=== PATIENT | male | born 1950 | race African-American/Black ===

== ENCOUNTER 2016-03-22 14:53 | Emergency (ER) | payer OTHER ==
[~2016-03-22] VITALS: Ht 170.2 cm; Wt 70.8 kg
[~2016-03-22 14:53] MED LIST: AMOXICILLIN 50500 M1 PO; FLONASE 0.05%50 MCG NASAL; HYDROCHLOROTHIA25 M1 PO; KYOLIC; LIPITOR20 MG PO; LISINOPRIL10 MG PO; LISINOPRIL20 MG PO; MIRALAX255 GM PO; OMEPRAZOLE 20 M20 MG PO; PRILOSEC 20 MG20 MG PO; SIMVASTATIN20 MG PO; TRAMADOL 50 MG50 MG PO; VENTOLIN HFA 1818 GM
[2016-03-22] MEDS ORDERED: VENTOLIN HFA 1818 GM INH (15:34)
[2016-03-22] MEDS ORDERED: NORVASC2.5 MG PO (15:56)
[2016-03-22] MEDS ORDERED: HYDROCHLOROTH12.5 M1 PO (15:56)
[2016-03-22] MEDS ORDERED: BENADRYL25 MG PO (15:58)
[2016-03-22] MEDS ORDERED: PEPCID20 MG PO (15:58)
[2016-03-22] MEDS ORDERED: DELTASONE20 MG PO (15:58)
[2016-03-22 16:32] VITALS: BP 114/73
[2016-05-13] MEDS ORDERED: COLACE100 MG PO (23:20)
[2016-05-14] MEDS ORDERED: TUSSIONEX PENN473 ML PO (00:05)
== END 2016-03-22 16:32 | disposition home or self-care (01) ==
LOC: ER 14:53
DX: T78.3XXA Angioneurotic edema, initial encounter (principal); J45.909 Unspecified asthma, uncomplicated; E78.00 Pure hypercholesterolemia, unspecified; I10 Essential (primary) hypertension; M41.80 Other forms of scoliosis, site unspecified

== ENCOUNTER 2017-02-23 19:26 | Emergency (ER) | payer OTHER ==
[~2017-02-23] VITALS: Ht 170.2 cm; Wt 70.3 kg
[~2017-02-23 19:26] MED LIST changes: +BENADRYL25 MG PO; +COLACE100 MG PO; +DELTASONE20 MG PO; +HYDROCHLOROTH12.5 M1 PO; +NORVASC2.5 MG PO; +PEPCID20 MG PO; +TUSSIONEX PENN473 ML PO; +VENTOLIN HFA 1818 GM INH
[2017-02-23 20:39] LABS: ABSOLUTE NEUTROPHILS 3.3 thou/uL (1.4-8.2); BASOPHILS 0.3 % (0.0-2.0); EOSINOPHILS 0.9 % (0.0-3.0); HEMATOCRIT 38.2 % (42.0-52.0); HEMOGLOBIN 12.9 gm/dL (14.0-18.0); LYMPHOCYTES 14.1 % (24.0-44.0); MCH 30.5 pg (26.0-34.0); MCHC 33.8 g/dL (28.0-37.0); MCV 90.2 fL (80.0-100.0); MONOCYTES 7.1 % (1.0-8.0); PLATELET COUNT 235 thou/uL (150-400); POLYS 77.6 % (36.0-66.0); RBC 4.23 mil/uL (4.50-6.00); RDW 13.9 % (10.5-14.5); WBC 4.3 thou/uL (4.0-11.0)
[2017-02-23 20:40] LABS: MANUAL DIFF NO
[2017-02-23 20:51] LABS: CALCIUM 9.4 mg/dL (8.5-10.1); CREATININE 0.9 mg/dL (0.7-1.3); POTASSIUM 3.8 mmol/L (3.5-5.1)
[2017-02-23 20:54] LABS: TOTAL BILIRUBIN 0.5 mg/dL (<0.1-1.0)
[2017-02-23] MEDS ORDERED: OSELB75 PO (22:29)
[2017-02-23 22:49] VITALS: BP 144/87
== END 2017-02-23 22:50 | disposition home or self-care (01) ==
LOC: ER 19:26
PROVIDERS: Physician Assistant
DX: J11.1 Influenza due to unidentified influenza virus with other respiratory manifestations (principal); J45.909 Unspecified asthma, uncomplicated; E78.00 Pure hypercholesterolemia, unspecified; I10 Essential (primary) hypertension

== ENCOUNTER 2018-03-22 17:33 | Emergency (ER) | payer OTHER ==
[~2018-03-22] VITALS: Ht 167.6 cm; Wt 72.6 kg
[~2018-03-22 17:33] MED LIST changes: +OSELB75 PO
[2018-03-22] MEDS ORDERED: LIPITOR 20 MG T20 M1 PO (18:17)
[2018-03-22 18:43] LABS: ABSOLUTE NEUTROPHILS 1.5 thou/uL (1.4-8.2); BASOPHILS 0.8 % (0.0-2.0); EOSINOPHILS 1.8 % (0.0-3.0); HEMATOCRIT 38.7 % (42.0-52.0); HEMOGLOBIN 13.1 gm/dL (14.0-18.0); MCH 31.1 pg (26.0-34.0); MCHC 33.8 g/dL (28.0-37.0); MCV 92.1 fL (80.0-100.0); MONOCYTES 10.4 % (1.0-8.0); PLATELET COUNT 247 thou/uL (150-400); RBC 4.21 mil/uL (4.50-6.00); RDW 13.3 % (10.5-14.5); WBC 3.9 thou/uL (4.0-11.0)
[2018-03-22 18:46] LABS: CALCIUM 9.2 mg/dL (8.5-10.1); POTASSIUM 3.7 mmol/L (3.5-5.1)
[2018-03-22] MEDS ORDERED: VENTOLIN HFA 1818 GM INH (20:49)
[2018-03-22 21:04] VITALS: BP 125/76
== END 2018-03-22 21:05 | disposition home or self-care (01) ==
LOC: ER 17:33
PROVIDERS: Student in an Organized Health Care Education/Training Program
DX: J06.9 Acute upper respiratory infection, unspecified (principal); J45.909 Unspecified asthma, uncomplicated; E78.00 Pure hypercholesterolemia, unspecified; I10 Essential (primary) hypertension; M41.9 Scoliosis, unspecified

== ENCOUNTER 2018-08-30 19:40 | Emergency (ER) | payer OTHER ==
[~2018-08-30] VITALS: Ht 170.2 cm; Wt 70.3 kg
[~2018-08-30 19:40] MED LIST changes: +LIPITOR 20 MG T20 M1 PO
[2018-08-30] MEDS ORDERED: HYDROCHLOROTH12.5 M1 PO (19:48)
[2018-08-30 20:17] LABS: ABSOLUTE NEUTROPHILS 1.4 thou/uL (1.4-8.2); BASOPHILS 1.4 % (0.0-2.0); HEMATOCRIT 36.7 % (42.0-52.0); HEMOGLOBIN 12.2 gm/dL (14.0-18.0); LYMPHOCYTES 48.4 % (24.0-44.0); MCH 30.6 pg (26.0-34.0); MCHC 33.2 g/dL (28.0-37.0); MCV 92.3 fL (80.0-100.0); MONOCYTES 9.5 % (1.0-8.0); PLATELET COUNT 243 thou/uL (150-400); POLYS 38.7 % (36.0-66.0); RBC 3.98 mil/uL (4.50-6.00); RDW 13.6 % (10.5-14.5); WBC 3.6 thou/uL (4.0-11.0)
[2018-08-30 20:18] LABS: ANION GAP 10 mmol/L (7-16); BUN 11 mg/dL (7-18); CALCIUM 9.5 mg/dL (8.5-10.1); CHLORIDE 105 mmol/L (98-107); CO2 28 mmol/L (21-32); CREATININE 0.9 mg/dL (0.7-1.3); GLUCOSE 123 mg/dL (74-106); POTASSIUM 3.9 mmol/L (3.5-5.1); SODIUM 143 mmol/L (136-145)
[2018-08-30 20:20] LABS: APTT 26.6 Seconds (24.5-32.8); PROTIME 10.3 Seconds (9.3-11.4)
[2018-08-30 20:28] LABS: ALBUMIN 3.4 g/dL (3.4-5.0); MAGNESIUM 2.3 mg/dL (1.8-2.4); SGOT 23 U/L (15-37); SGPT 25 U/L (30-65); TOTAL BILIRUBIN 0.3 mg/dL (<0.1-1.0); TOTAL PROTEIN 7.8 g/dL (6.4-8.2); TROPONIN-I <0.06 ng/mL (<0.06)
[2018-08-30 21:08] VITALS: BP 153/88
--- NOTE | 2018-08-31 07:35 | EKG ---
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1950 Requested By: Robi Cochran Order Number: [id number] MD: Juanjo Summers Measurements Intervals [place] Rate: 63 P: 36 MN: 203 QRS: 6 QRSD: 116 T: 58 QT: 413 QTc: 423 Interpretive Statements Sinus rhythm Left ventricular hypertrophy Early R-wave progression Compared to ECG 04/06/2016 12:54:45 No significant changes Electronically Signed On 08-31-2018 7:34:53 CDT by Juanjo Summers [email or web address] ��������������������������������������������� <ELECTRONICALLY SIGNED> ���������������������������������������� By: Juanjo Summers MD, [facility] ��������������������������������������������� 08/31/18 0734 1940 40 Juanjo Summers MD, FACC /EPI
== END 2018-08-30 21:10 | disposition home or self-care (01) ==
LOC: ER 19:40
PROVIDERS: Emergency Medicine
DX: K21.9 Gastro-esophageal reflux disease without esophagitis (principal); K20.9 Esophagitis, unspecified; M41.9 Scoliosis, unspecified; M41.85 Other forms of scoliosis, thoracolumbar region; J45.909 Unspecified asthma, uncomplicated; E78.00 Pure hypercholesterolemia, unspecified; I10 Essential (primary) hypertension

== ENCOUNTER 2019-05-13 03:49 | Inpatient (IN) | payer OTHER ==
[~2019-05-13] VITALS: Ht 170.2 cm; Wt 72.1 kg
[2019-05-13] VITALS (17 sets, daily range): BP systolic 113–136; BP diastolic 57–97
[2019-05-13 04:21] LABS: ABSOLUTE NEUTROPHILS 1.1 thou/uL (1.4-8.2); BASOPHILS 0.7 % (0.0-2.0); EOSINOPHILS 2.2 % (0.0-3.0); HEMATOCRIT 37.4 % (42.0-52.0); HEMOGLOBIN 12.2 gm/dL (14.0-18.0); MCH 30.6 pg (26.0-34.0); MCHC 32.7 g/dL (28.0-37.0); MCV 93.6 fL (80.0-100.0); MONOCYTES 11.1 % (1.0-8.0); PLATELET COUNT 250 thou/uL (150-400); RDW 13.4 % (10.5-14.5); WBC 3.9 thou/uL (4.0-11.0)
[2019-05-13 04:28] LABS: CALCIUM 9.3 mg/dL (8.5-10.1); CREATININE 0.9 mg/dL (0.7-1.3); POTASSIUM 3.2 mmol/L (3.5-5.1)
[2019-05-13 04:39] LABS: ALBUMIN 3.8 g/dL (3.4-5.0); TOTAL BILIRUBIN 0.4 mg/dL (<0.1-1.0); TOTAL PROTEIN 7.7 g/dL (6.4-8.2); TROPONIN-I 0.27 ng/mL (<0.06)
--- NOTE | 2019-05-13 05:40 | NUR ---
HAND OFF TOOL FAXED TO [facility]
--- NOTE | 2019-05-13 05:59 | NUR ---
Report is given to ELLIS Zuniga
[2019-05-13 07:30] LABS: ALBUMIN 3.8 g/dL (3.4-5.0); TOTAL PROTEIN 7.7 g/dL (6.4-8.2)
[2019-05-13 07:55] LABS: TSH 1.765 uIU/mL (0.358-3.740)
[2019-05-13 09:36] LABS: CHOLESTEROL 180 mg/dL (<200); HDL CHOLESTEROL 47 mg/dL (>40); LDL CHOLESTEROL 121 mg/dL (<100); TC:HDL 3.8 Ratio (Not establshd); TRIGLYCERIDE 64 mg/dL (<150); VLDL 13 mg/dL (<40)
--- NOTE | 2019-05-13 13:11 | CATHLAB ---
[facility] [place] [address] INVASIVE PROCEDURE REPORT Name: CELESTE DE LA VEGA Room #: 204-P ADM IN M.R.#: [id number] Admission: 05/13/19 Attend Phys: Diego Mccullough MD Discharge: Date of : 48 Report #: [id number] THIS REPORT FOR: cc: FAM - No family physician/PCP FAM - No family physician/PCP Juanjo Summers MD [facility] ~ APPROVED REPORT Study performed: 05/13/2019 10:01:34 Patient Details Patient Status: In-Patient Room #: The patient is a 68 year-old male Event Personnel Juanjo Summers Film Sound Coordinator, Amber Rushing RN RN, Jordan, Jaqcuelyn Monitor, Daniel Zelaya'eliz RTR Scrub Procedures Performed Art Access - R femoral artery* 75313 Initial Mod Sed Same Phys/QHP Gr5y 493486 11203 Mod Sed Same Phys/QHP Ea 280421 Left Heart Cath w/or w/o Coronaries [id number] [facility] Place w/wo Plasty Single RCA 752547 Hemostasis w/ Mynx Indication Non-STEMI (>6 hrs to = 12 hrs), Chest pain Risk Factors Dysplipidemia , Hypertension Procedure Narrative The patient was brought urgently to the Cardiac Catheterization Laboratory and was prepped and draped in a sterile manner. The Right Groin^ was infiltrated with 1% Lidocaine subcutaneous anesthesia. A PINNACLE 6FR Sheath #[id number] sheath was inserted into the RFA^. Coronary angiography was performed using coronary diagnostic catheters. The right coronary system was accessed and visualized with a JR 4 catheter. The left coronary system was accessed and visualized with a JL 4 catheter. The left ventricle was accessed and visualized with a Pigtail catheter. Left ventricular/Aortic Valve gradient assessed via catheter pullback. Closure device was deployed with a 6 Fr Mynx. The patient tolerated the procedure well and there were no complications associated with the procedure. There was no hematoma. Due to severe kyphoscoliosis, the aorta is extremely tortuous. [facility] [address] [place] [address] INVASIVE PROCEDURE REPORT Name: CELESTE DE LA VEGA Room #: 204-P [facility] IN ..#: [id number] Admission: 05/13/19 Attend Phys: Diego Mccullough MD Discharge: Date of : 48 Report #: [id number] Coronary ostial engagement was difficult especially for the right coronary. Right coronary guide support was fair at best. Multiple wires and balloons were used. Intraoperative Conscious Sedation Sedation start time: 10:06 Case end Time: 12:12 Fentanyl 75 mcg Versed 1 mg Fluoro Time: 31.09 minutes Dose: DAP 81649.00 cGycm2 6282 mGy Contrast Type and Amount: Omnipaque 325 ml Coronary Angiography The patient's coronary anatomy is right dominant. Diagnostic Cath Left Main 10-20% distal left main plaquing LAD Mild proximal and mid LAD plaquing Circumflex 30-40% ostial circumflex plaquing OM1 The circumflex is comprised of a single distally bifurcating marginal branch. Mild mid OM branch plaquing of 20-30% Right Coronary The right coronary is dominant and very tortuous in its proximal and mid portions with a critical 99% long mid right coronary stenosis Left Ventriculography The left ventricle is normal in size with abnormal contractility. The left ventricular ejection fraction is estimated to be 50%. Left ventricular wall motion abnormalities are present. There is no mitral insufficiency. Inferior wall hypokinesis Hemodynamics The aortic pressure is 152/55 mmHg with a mean of 98 mmHg. The left ventricular pressure is 152/2 mmHg with a mean of mmHg. The left ventricular end diastolic pressure is 31 mmHg. PCI Technique Lesion Anticoagulation was achieved with Heparin, Integrilin. Patient was preloaded with Effient. Percutaneous coronary intervention was performed on the mid right coronary artery. The lesion stenosis prior to intervention was 99% with AMARA 3 flow. A LAUNCHER 6FR JR 4 #[id number] Guide Catheter was used to engage the right coronary ostium. A Luge Wire .014 x 182CM #[id number] Interventional Guidewire was used to cross the lesion. [facility] [address] [place] [address] INVASIVE PROCEDURE REPORT Name: CELESTE DE LA VEGA Room #: 204-P [facility] IN M.R.#: [id number] Admission: 05/13/19 Attend Phys: Diego Mccullough MD Discharge: Date of : 48 Report #: [id number] BALLOON DILATION A Balloon catheter Euphora RX 2.5 x 12 #[id number] was inserted and inflated up to 8.00atm for 34seconds. Additional Inflation: 14.00atm for 68seconds. Additional Inflation: 17.00atm for 66seconds. STENT DEPLOYMENT A drug-eluting stent RESOLUTE YEYO RX 2.5 X 12 #[id number] was inserted and inflated up to 18.00atm for 30seconds. Multiple prolonged inflations were made in the mid right coronary. A saman wire was placed and needed in order to deliver the stents to the mid right coronary A long 36 mm stent would not traverse the mid right coronary. Consequently, 3 shorter stents were used in sequence, distally a 2.5 x 12 mm, then 2.5 x 15 mm, then 2.5 x 15 mm Resolute stents POST STENT DEPLOYMENT BALLOON DILATION A Balloon catheter ShuttersongK NC RX 2.75 X 12 #[id number] was inserted and inflated up to 18.00atm for 33seconds. Additional Inflation: 22.00atm for 35seconds. Additional Inflation: 24.00atm for 33seconds. All stents were postdilated with a 2.75 mm noncompliant balloon to in upwards of 24 ruben (3.0 mm) Final angiography reveals 0 % stenosis with AMARA 3 flow. COMMENTS Difficult coronary intervention requiring multiple wiring catheter exchanges. Some of this difficulty was related to extreme tortuosity of the aorta due to severe kyphoscoliosis STENT DEPLOYMENT A drug-eluting stent RESOLUTE YEYO RX 2.5 X 15 #[id number] was inserted and inflated up to 18.00atm for 33seconds. Conclusion 1. Mild left ventricular dysfunction with inferior wall hypokinesis. Ejection fraction 50%. 2. Acute diastolic heart failure with elevated left ventricular end-diastolic pressure 3. Mild left main plaquing. 4. Minimal plaquing of the proximal and mid portions of the LAD. 5. 40% ostial circumflex stenosis (nondominant) feeding a single marginal branch 6. Severe, tortuous and dominant right coronary stenosis of 99%. This was successfully treated in sequence with a 2.5 x 12 mm, 2.5 x 15 mm, and 2.5 x 15 mm Resolute stents, postdilated to 3.0 mm [facility] [address] [address] INVASIVE PROCEDURE REPORT Name: YOLETTEKIANNASAPPHIRE Room #: 204-P ADM IN M.R.#: [id number] Admission: 05/13/19 Attend Phys: Diego Mccullough MD Discharge: Date of : 48 Report #: [id number] Recommendations Cardiac Rehabilitation Referral Aggressive Medical Therapy <ELECTRONICALLY SIGNED> By: Juanjo Summers MD, FAC 05/13/19 1309 1309 130 Juanjo Summers MD, FAC /INF
--- NOTE | 2019-05-13 13:26 | EKG ---
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1950 Requested By: Jonah Rain Order Number: [id number] MD: Juanjo Summers Measurements Intervals [place] Rate: 70 P: 54 ME: 217 QRS: 6 QRSD: 128 T: -1 QT: 446 QTc: 482 Interpretive Statements Sinus rhythm Borderline prolonged ME interval Left ventricular hypertrophy Borderline prolonged QT interval Compared to ECG 08/30/2018 19:41:38 No significant changes Electronically Signed On 05-13-2019 13:25:04 CDT by Juanjo Summers [email or web address] <ELECTRONICALLY SIGNED> By: Juanjo Summers MD, [facility] 05/13/19 1325 0404 0404 Juanjo Summers MD, [facility] /EPI
--- NOTE | 2019-05-13 13:26 | EKG ---
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1950 Requested By: Jonah Rain Order Number: [id number] MD: Juanjo Summers Measurements Intervals [place] Rate: 64 P: 36 [place]: 207 QRS: 4 QRSD: 112 T: 65 QT: 427 QTc: 441 Interpretive Statements Sinus rhythm Abnormal R-wave progression, early transition Left ventricular hypertrophy Compared to ECG 08/30/2018 19:41:38 No significant changes Electronically Signed On 05-13-2019 13:25:14 CDT by Juanjo Summers [email or web address] <ELECTRONICALLY SIGNED> By: Juanjo Summers MD, [facility] 05/13/19 1325 0452 0452 Juanjo Summers MD, [facility] /EPI
--- NOTE | 2019-05-13 13:27 | EKG ---
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1950 Requested By: Juanjo Summers Order Number: [id number] MD: Juanjo Summers Measurements Intervals [place] Rate: 79 P: 51 WA: 214 QRS: -26 QRSD: 119 T: 17 QT: 416 QTc: 477 Interpretive Statements Sinus rhythm Borderline prolonged [place] interval Early R-wave progression Left ventricular hypertrophy Inferior infarct, old Compared to ECG 08/30/2018 19:41:38 Inferior Q waves are more prominent Electronically Signed On 05-13-2019 13:26:29 CDT by Juanjo Summers [email or web address] <ELECTRONICALLY SIGNED> By: Juanjo Summers MD, [facility] 05/13/19 1326 1206 1206 Juanjo Summers MD, FAC /EPI
--- NOTE | 2019-05-13 19:05 | NUR ---
ASSUMED CARE OF PT AT SHIFT CHANGE. ASSESSMENTS CHARTED. MEDS GIVEN PER MAY. PT A&OX4. VSS. 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 R GROIN SIDE REMAINS CDI, SOFT WITH NO HEMATOMA OR BRUISING. WILL CONTINUE TO MONITOR AND FOLLOW POC.
[2019-05-14] VITALS (8 sets, daily range): BP systolic 106–129; BP diastolic 58–76
[2019-05-14 03:08] LABS: GLYCOHEMOGLOBIN (HGB A1C) 6.2 % (4.8-5.6)
--- NOTE | 2019-05-14 04:14 | NUR ---
ASSESSMENT DOCUMENTED.PT BEEN RESTING IN NO ACUTE DISTRESS.A/OX4.VSS.S/P CARDIAC JOHNY,RIGHT GROIN INTACT W/O HEMATOMA.UP AD ASHLY TO BR,VOIDING ADEQUATELY VIA URINAL.NSR ON MONITOR.PT TO DISCHARGE TO HOME TODAY.WILL CONT TO MONITOR PER POC
[2019-05-14 04:27] LABS: HEMATOCRIT 33.2 % (42.0-52.0); HEMOGLOBIN 10.9 gm/dL (14.0-18.0); MCH 30.7 pg (26.0-34.0); MCHC 32.7 g/dL (28.0-37.0); MCV 93.8 fL (80.0-100.0); RBC 3.54 mil/uL (4.50-6.00); RDW 13.5 % (10.5-14.5)
[2019-05-14 04:32] LABS: ALBUMIN 3.2 g/dL (3.4-5.0); CALCIUM 8.9 mg/dL (8.5-10.1); CREATININE 0.9 mg/dL (0.7-1.3); MAGNESIUM 1.9 mg/dL (1.8-2.4); POTASSIUM 3.8 mmol/L (3.5-5.1); TOTAL BILIRUBIN 0.6 mg/dL (<0.1-1.0); TOTAL PROTEIN 6.8 g/dL (6.4-8.2)
[2019-05-14 04:35] LABS: TROPONIN-I 28.74 ng/mL (<0.06)
--- NOTE | 2019-05-14 09:00 | EKG ---
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1950 Requested By: Juanjo Summers Order Number: [id number] MD: Sae Hollis Measurements Intervals [place] Rate: 54 P: 42 FL: 217 QRS: -36 QRSD: 131 T: 16 QT: 425 QTc: 403 Interpretive Statements Sinus rhythm Borderline prolonged [place] interval Nonspecific IVCD with LAD Left ventricular hypertrophy Compared to ECG 05/13/2019 12:06:25 Intraventricular conduction delay now present Myocardial infarct finding still present Electronically Signed On 05-14-2019 8:59:32 CDT by Sae Hollis [email or web address] <ELECTRONICALLY SIGNED> By: Sae Hollis MD 05/14/19 0859 2 2 Sae Hollis MD /EPI
--- NOTE | 2019-05-14 13:34 | 2DMMODE ---
[facility] [place] [address] 2 D/M-MODE ECHOCARDIOGRAM Name: CELESTE DE LA VEGA Room #: 204-P ADM IN M.R.#: [id number] Admission: 05/13/19 Attend Phys: Diego Mccullough MD Discharge: Date of : 48 Report #: [id number] THIS REPORT FOR: cc: FAM - No family physician/PCP FAM - No family physician/PCP Juanjo Summers MD [facility] ~ APPROVED REPORT Study performed: 05/14/2019 09:59:45 EXAM: Comprehensive 2D, Doppler, and color-flow Echocardiogram Patient Location: Echo lab Room #: 204 Status: routine BSA: 1.84 HR: 54 bpm BP: 113/71 mmHg Rhythm: NSR Other Information Study Quality: Excellent Indications KS status post PCI. Hx: HTN, HLP. 2D Dimensions RVDd: 42.46 mm IVSd: 10.44 (7-11mm) LVOT Diam: 23.52 (18-24mm) LVDd: 44.86 mm PWd: 9.99 (7-11mm) Ascending Ao: 34.96 (22-36mm) LVDs: 33.77 (25-40mm) Aortic Root: 37.45 mm Volumes Left Atrial Volume (Systole) Single Plane 4CH: 68.57 mL Single Plane 2CH: 71.15 mL LA ESV Index: 42.00 mL/m2 Aortic Valve AoV Peak Jerry.: 1.58 m/s AO Peak Gr.: 10.04 mmHg LVOT Max P.15 mmHg LVOT Max V: 0.89 m/s MARY Vmax: 2.43 cm2 [facility] [address] [place] [address] 2 D/M-MODE ECHOCARDIOGRAM Name: CELESTE DE LA VEGA Room #: 204-P [facility] IN ..#: [id number] Admission: 05/13/19 Attend Phys: Diego Mccullough MD Discharge: Date of : 48 Report #: [id number] Mitral Valve E/A Ratio: 1.7 MV Decel. Time: 175.84 ms MV E Max Jerry.: 0.78 m/s MV A Jerry.: 0.47 m/s MV PHT: 50.99 ms IVRT: 65.74 ms Pulmonary Valve PV Peak Jerry.: 0.84 m/s PV Peak Gr.: 2.84 mmHg Pulmonary Vein P Vein S: 0.42 m/s P Vein A: 0.35 m/s P Vein D: 0.45 m/s P Vein A Dur.: 120.0 msec P Vein S/D Ratio: 0.93 Tricuspid Valve TR Peak Jerry.: 2.72 m/s RAP Estimate: 5.00 mmHg TR Peak Gr.: 30.00 mmHg PA Pressure: 35.00 mmHg Left Ventricle The left ventricle is normal size. There is normal left ventricular wall thickness. Left ventricular systolic function is at the lower limits of normal. Hypokinesis involving the base and mid portions of the inferior wall. LVEF is 50%. The left ventricular diastolic function is normal. Right Ventricle The right ventricle is normal size. The right ventricular systolic function is normal. Atria Left atrium is mildly dilated. The right atrium size is normal. Aortic Valve The aortic valve is moderately calcified, trileaflet Mild aortic regurgitation. There is no aortic valvular stenosis. Mitral Valve The mitral valve is normal in structure. Mild to moderate mitral regurgitation. Tricuspid Valve [facility] [address] [place] [address] 2 D/M-MODE ECHOCARDIOGRAM Name: CELESTE DE LA VEGA Room #: 204-P ADM IN M.R.#: [id number] Admission: 05/13/19 Attend Phys: Diego Mccullough MD Discharge: Date of : 48 Report #: [id number] The tricuspid valve is normal in structure. Mild tricuspid regurgitation. Estimated PAP is 35mmHg. Pulmonic Valve The pulmonary valve is normal in structure. Mild to moderate pulmonic regurgitation. Great Vessels The aortic root is normal in size. The ascending aorta is normal in size. IVC is normal in size and collapses >50% with inspiration. Pericardium There is no pericardial effusion. <Conclusion> Left ventricular systolic function is at the lower limits of normal. Hypokinesis involving the base and mid portions of the inferior wall. LVEF is 50%. Left atrium is mildly dilated. The aortic valve is moderately calcified, trileaflet. Mild aortic regurgitation, no stenosis The mitral valve is normal in structure. Mild to moderate mitral regurgitation. Mild tricuspid regurgitation. Estimated pulmonary artery pressure of 35mmHg. There is no pericardial effusion. <ELECTRONICALLY SIGNED> By: Juanjo Summers MD, [facility] 05/14/19 1333 1333 133 Juanjo Summers MD, FACC /INF
--- NOTE | 2019-05-14 17:50 | NUR ---
ASSUMED CARE OF PT AT SHIFT CHANGE. ASSESSMENTS CHARTED. MEDS GIVEN PER MAY. PT A&OX4, NO C/O PAIN OR SOA. ON RA. CRITICAL TROP,18.17, RECEIVED FROM LAB AND RECORDED. ORDERS STATE TO NO CALL CARDIOLOGY WITH ELEVATED TROPS. PLAN TO CONTINUE MEDS AND DC TOMORROW. AT BEDSIDE.
--- NOTE | 2019-05-15 03:59 | NUR ---
ASSESSMENT DOCUMENTED.PT BEEN RESTING IN NO ACUTE DISTRESS.A/OX4.VSS.DENIES CHEST DISCOMFORT.UP AD ASHLY TO BR.VOIDING ADEQUATELYS/P CARDIAC JOHNY W/KITA PLACED TO RCA.RIGHT GROIN W/O HEMATOMA.PT TO DISCHARGE TO HOME TODAY.WILL CONT TO MONITOR PER POC.
[2019-05-15 04:25] VITALS: BP 115/75
[2019-05-15 05:57] LABS: HEMATOCRIT 35.7 % (42.0-52.0); HEMOGLOBIN 11.8 gm/dL (14.0-18.0); MCH 30.7 pg (26.0-34.0); MCHC 33.1 g/dL (28.0-37.0); MCV 92.8 fL (80.0-100.0); RBC 3.85 mil/uL (4.50-6.00); RDW 13.6 % (10.5-14.5); WBC 5.2 thou/uL (4.0-11.0)
[2019-05-15 06:30] LABS: CALCIUM 9.1 mg/dL (8.5-10.1); MAGNESIUM 1.8 mg/dL (1.8-2.4); POTASSIUM 3.7 mmol/L (3.5-5.1)
[2019-05-15] MEDS ORDERED: LIPITOR40 MG PO (07:44)
[2019-05-15] MEDS ORDERED: LOPRESSOR25 PO (07:44)
[2019-05-15] MEDS ORDERED: EFFIENT10 MG PO (07:44)
[2019-05-15] MEDS ORDERED: ADULT LOW DOSE81 MG PO (07:44)
[2019-05-15] MEDS ORDERED: COZAAR 25 MG TA25 M2 PO ×2 (07:44→07:52)
[2019-05-15] MEDS ORDERED: METOPROLOL SUCC50 MG PO (07:50)
[2019-05-15 08:00] VITALS: BP 112/67
[2019-05-15 10:51] VITALS: BP 112/67
--- NOTE | 2019-05-15 15:05 | NUR ---
ASSUMED CARE PT SHIFT CHANGE. ASSESSMENT CHARTED. MEDS GIVEN PER MAY. PT ALERT AND ORIENTED. VSS. DENIES PAIN. O2 SATS WNL ON ROOM AIR. RIGHT GROIN SITE CDI NO HEMATOMA. DC ORDERS RECEIVED AND ACKNOWLEDGED. DC PAPERWORK DISCUSSED WITH PT. SCRIPTS WITH PT. IV REMOVED. TELE REMOVED. PT LEFT UNIT WITH ALL BELONGINGS AT APPROX 1130
== END 2019-05-15 11:30 | disposition home or self-care (01) | DRG 246 ==
LOC: ER 03:49 → 2N 05:05 → EROBS 05:05 → 2N 06:13
PROVIDERS: Emergency Medicine; Internal Medicine; ADMIT Hospitalist
PROC: 027036Z Dilation of Coronary Artery, One Artery with Three Drug-eluting Intraluminal Devices, Percutaneous Approach (ICD-10-PCS; principal; 2019-05-13)
PROC: B2111ZZ Fluoroscopy of Multiple Coronary Arteries using Low Osmolar Contrast (ICD-10-PCS; principal; 2019-05-13)
PROC: B2151ZZ Fluoroscopy of Left Heart using Low Osmolar Contrast (ICD-10-PCS; principal; 2019-05-13)
PROC: 4A023N7 Measurement of Cardiac Sampling and Pressure, Left Heart, Percutaneous Approach (ICD-10-PCS; principal; 2019-05-13)
DX: I21.4 Non-ST elevation (NSTEMI) myocardial infarction (principal); I50.31 Acute diastolic (congestive) heart failure; M54.9 Dorsalgia, unspecified; M41.9 Scoliosis, unspecified; I11.0 Hypertensive heart disease with heart failure; E78.5 Hyperlipidemia, unspecified; J45.909 Unspecified asthma, uncomplicated; E78.00 Pure hypercholesterolemia, unspecified; K21.9 Gastro-esophageal reflux disease without esophagitis; R73.9 Hyperglycemia, unspecified; I25.10 Atherosclerotic heart disease of native coronary artery without angina pectoris; Z82.49 Family history of ischemic heart disease and other diseases of the circulatory system; Z79.82 Long term (current) use of aspirin; Z79.899 Other long term (current) drug therapy
CPT/HCPCS: 10081

== ENCOUNTER → 2019-06-26 | Outpatient (CLI) | payer OTHER ==
[~2019-06-26] MED LIST changes: +ADULT LOW DOSE81 MG PO; +COZAAR 25 MG TA25 M2 PO; +EFFIENT10 MG PO; +LIPITOR40 MG PO; +LOPRESSOR25 PO; +METOPROLOL SUCC50 MG PO
== END ==
LOC: SJCVC 13:07
DX: R94.31 Abnormal electrocardiogram [ECG] [EKG] (principal); I21.19 ST elevation (STEMI) myocardial infarction involving other coronary artery of inferior wall; R00.1 Bradycardia, unspecified; I25.10 Atherosclerotic heart disease of native coronary artery without angina pectoris; I10 Essential (primary) hypertension; E78.5 Hyperlipidemia, unspecified; R73.9 Hyperglycemia, unspecified

== ENCOUNTER → 2020-05-16 | Outpatient (CLI) | payer OTHER | LOC: SJCVC 12:54 | PROVIDERS: ATTEND Internal Medicine | DX: R94.31 Abnormal electrocardiogram [ECG] [EKG] (principal); R00.1 Bradycardia, unspecified; I25.10 Atherosclerotic heart disease of native coronary artery without angina pectoris; R78.5 Finding of other psychotropic drug in blood; I11.9 Hypertensive heart disease without heart failure; R73.9 Hyperglycemia, unspecified; E78.5 Hyperlipidemia, unspecified; Z79.82 Long term (current) use of aspirin; Z79.899 Other long term (current) drug therapy ==

== ENCOUNTER → 2021-01-16 | Outpatient (CLI) | payer OTHER | LOC: SJCVCIMAG 07:30 | PROVIDERS: ATTEND Internal Medicine | DX: I35.8 Other nonrheumatic aortic valve disorders (principal); I65.23 Occlusion and stenosis of bilateral carotid arteries; I25.10 Atherosclerotic heart disease of native coronary artery without angina pectoris; I10 Essential (primary) hypertension; E78.5 Hyperlipidemia, unspecified; R73.9 Hyperglycemia, unspecified; K21.9 Gastro-esophageal reflux disease without esophagitis; J45.909 Unspecified asthma, uncomplicated; Z79.82 Long term (current) use of aspirin; Z79.899 Other long term (current) drug therapy; Z95.5 Presence of coronary angioplasty implant and graft; Z82.49 Family history of ischemic heart disease and other diseases of the circulatory system ==